=== PATIENT | male | born 1955 | race Caucasian/White ===

== ENCOUNTER 2021-04-17 05:08 | Emergency (ER) | payer MEDICARE ==
[~2021-04-17] VITALS: Ht 177.8 cm; Wt 91.3 kg
[2021-04-17] MEDS ORDERED: IV NORMAL SALINE 1,000ML 1,000 ML IV ONE (05:30)
[2021-04-17] MEDS ORDERED: FUROSEMIDE 40 MG/4 ML VIAL IVP ONE (05:30)
[2021-04-17] MEDS ORDERED: PIPERACILLIN/TAZOBACTAM 3.375 GM in IV NORMAL SALINE 50ML 50 ML IV ONE (05:30)
--- NOTE | 2021-04-17 05:41 | RAD ---
XR CHEST 1V History: Reason: SOB / Spl. Instructions: / History: Comparison: March 18, 2021 Findings: Low lung volumes. Patchy mid and bibasilar opacities. No pleural effusion. No pneumothorax. Normal he art size. Impression: 1. Low lung volumes with patchy mid and bibasilar opacities, may represent atelectasis or developing infiltrates. If persistent clinical concern, recommend follow-up. Electronically signed by: Rahul Marie DO (04/17/2021 5:39 AM) [facility]
[2021-04-17 05:44] LABS: BGAS PH 7.49 (7.35-7.46)
[2021-04-17 05:44] LABS: BASO # 0.1 x10^3/uL (0.0-0.2); BASO % 1 % (0-3); EOS % 0 % (0-3); HEMATOCRIT 27.2 % (39.0-53.0); HEMOGLOBIN 8.9 g/dL (13.0-17.5); LYMPH # 1.1 x10^3/uL (1.0-4.8); LYMPH % 9 % (24-48); MEAN CORPUSCULAR HEMOGLOBIN 33 pg (25-35); MEAN CORPUSCULAR HGB CONC 33 g/dL (31-37); MEAN CORPUSCULAR VOLUME 102 fL (79-100); MONO # 0.7 x10^3/uL (0.0-1.1); MONO % 6 % (0-9); NEUT % 84 % (31-73); PLATELET COUNT 364 x10^3/uL (140-400); RED BLOOD COUNT 2.68 x10^6/uL (4.30-5.70); RED CELL DISTRIBUTION WIDTH 23.3 % (11.5-14.5); WHITE BLOOD COUNT 11.9 x10^3/uL (4.0-11.0)
[2021-04-17 05:48] LABS: CALCIUM 7.9 mg/dL (8.5-10.1); CREATININE 0.8 mg/dL (0.7-1.3); GFR 96.4
[2021-04-17] MEDS ORDERED: IV NORMAL SALINE 50ML 50 ML ONE (05:51)
[2021-04-17] MEDS ORDERED: PIPERACILLIN/TAZOBACTAM 3.375 GM VIAL IV ONE (05:51)
[2021-04-17 05:54] LABS: ALBUMIN 1.5 g/dL (3.4-5.0); ALBUMIN/GLOBULIN RATIO 0.3 (1.0-1.7); TOTAL BILIRUBIN 1.9 mg/dL (0.2-1.0); TOTAL PROTEIN 6.5 g/dL (6.4-8.2)
[2021-04-17 05:55] LABS: ANISOCYTOSIS MOD; MICROCYTOSIS SLIGHT; PLT ESTIMATE ADEQUATE (ADEQUATE)
--- NOTE | 2021-04-17 05:55 | PHYS DOC ---
General Adult EDM: Chief Complaint: SHORTNESS OF BREATH HPI: HPI: 66-year-old male presents via EMS from rehab facility for respiratory distress and fever. The patient arrived on BiPAP. He is not really able to answer questions at this time. He is awake and alert. History from EMS states that he just got to the rehab facility yesterday at 6 PM, with some 12 hours ago. Patient was found to have a temperature of 101.7 and was having respiratory distress. He sounded wet. His oxygen was 84 on room air. They placed him on BiPAP. It is not clear what surgery the patient had. He has large abdominal dressing with TEVIN drains. He also has feeding tubes. He did get his Covid 19 first vaccine yesterday. (DREW PACHECO DO) Review of Systems: Review of Systems: Constitutional: Denies fever or chills Eyes: Denies change in visual acuity HENT: Denies nasal congestion or sore throat Respiratory: shortness of breath Cardiovascular: Denies chest pain or edema GI: Denies abdominal pain, nausea, vomiting, bloody stools or diarrhea : Denies dysuria Musculoskeletal: Denies back pain or joint pain Integument: Denies rash Neurologic: Denies headache, focal weakness or sensory changes Endocrine: Denies polyuria or polydipsia Lymphatic: Denies swollen glands Psychiatric: Denies depression or anxiety (DREW PACHECO DO) Current Medications: Current Meds: Current Medications Medications (Trade) Dose Ordered Sig/Sandra Start Time Stop Time Status Last Admin Dose Admin Furosemide (Lasix) 40 mg 1X ONCE 04/17/21 05:30 04/17/21 05:35 DC 04/17/21 05:34 40 MG Piperacillin Sod/ Tazobactam Sod 3.375 gm/Sodium Chloride 50 ml @ 100 mls/hr 1X ONCE 04/17/21 05:30 04/17/21 05:59 Sodium Chloride 1,000 ml @ 1,000 mls/hr 1X ONCE 04/17/21 05:30 04/17/21 06:29 04/17/21 05:30 1,000 MLS/HR (DREW PACHECO DO) Allergies: Allergies: Allergies Coded Allergies Type Severity Reaction Last Updated Verified No Known Drug Allergies 04/17/21 No (DREW PACHECO DO) Physical Exam: PE: Constitutional: Well developed, well nourished, moderate acute distress. [] HENT: Normocephalic, atraumatic, bilateral external ears normal, oropharynx very dry, no oral exudates, nose normal. [] Eyes: PERRLA, EOMI, conjunctiva normal, no discharge. [] Neck: Normal range of motion, no tenderness, supple, no stridor. [] Cardiovascular: Heart rate 132, regular rhythm, no murmur [] Lungs & Thorax: Bilateral breath sounds with inspiratory and expiratory crackles throughout [] Abdomen: TEVIN drains and feeding tubes in place [] Skin: Warm, dry, no erythema, no rash. [] Back: No tenderness, no CVA tenderness. [] Extremities: No tenderness, no cyanosis, no clubbing, ROM intact, no edema. [] Neurologic: Alert, normal motor function, normal sensory function, no focal deficits noted. [] Psychologic: Affect normal, judgement normal, mood normal. [] (DREW PACHECO DO) Current Patient Data: Labs: Laboratory Tests Test 04/17/21 05:17 Glucose (Fingerstick) 192 mg/dL (70-99) H (DREW PACHECO DO) Labs: Laboratory Tests Test 04/17/21 05:17 04/17/21 05:20 04/17/21 05:23 Glucose (Fingerstick) 192 mg/dL Blood Gas pH 7.49 Blood Gas PCO2 41 mmHg Blood Gas PO2 89 mmHg Blood Gas HCO3 31 mmol/L Arterial Bld O2 Saturation (Calc) 97 % FiO2 50 % White Blood Count 11.9 x10^3/uL Red Blood Count 2.68 x10^6/uL Hemoglobin 8.9 g/dL Hematocrit 27.2 % Mean Corpuscular Volume 102 fL Mean Corpuscular Hemoglobin 33 pg Mean Corpuscular Hemoglobin Concent 33 g/dL Red Cell Distribution Width 23.3 % Platelet Count 364 x10^3/uL Neutrophils (%) (Auto) 84 % Lymphocytes (%) (Auto) 9 % Monocytes (%) (Auto) 6 % Eosinophils (%) (Auto) 0 % Basophils (%) (Auto) 1 % Neutrophils # (Auto) 10.0 x10^3uL Lymphocytes # (Auto) 1.1 x10^3/uL Monocytes # (Auto) 0.7 x10^3/uL Eosinophils # (Auto) 0.0 x10^3/uL Basophils # (Auto) 0.1 x10^3/uL Platelet Estimate Adequate Anisocytosis Mod Microcytosis Slight Macrocytosis Slight Sodium Level 144 mmol/L Potassium Level 4.0 mmol/L Chloride Level 107 mmol/L Carbon Dioxide Level 30 mmol/L Anion Gap 7 Blood Urea Nitrogen 17 mg/dL Creatinine 0.8 mg/dL Estimated GFR (Cockcroft-Gault) 96.4 BUN/Creatinine Ratio 21 Glucose Level 203 mg/dL Lactic Acid Level 1.5 mmol/L Calcium Level 7.9 mg/dL Total Bilirubin 1.9 mg/dL Aspartate Amino Transf (AST/SGOT) 40 U/L Alanine Aminotransferase (ALT/SGPT) 57 U/L Alkaline Phosphatase 364 U/L Troponin I Quantitative < 0.017 ng/mL Total Protein 6.5 g/dL Albumin 1.5 g/dL Albumin/Globulin Ratio 0.3 Current Medications Medications (Trade) Dose Ordered Sig/Sandra Route PRN Reason Start Time Stop Time Status Last Admin Dose Admin Furosemide (Lasix) 40 mg 1X ONCE IVP 04/17/21 05:30 04/17/21 05:35 DC 04/17/21 05:34 Sodium Chloride 1,000 ml @ 1,000 mls/hr 1X ONCE IV 04/17/21 05:30 04/17/21 06:29 04/17/21 05:30 Piperacillin Sod/ Tazobactam Sod 3.375 gm/Sodium Chloride 50 ml @ 100 mls/hr 1X ONCE IV 04/17/21 05:30 04/17/21 05:59 DC 04/17/21 06:15 Sodium Chloride 1,000 ml @ 1,730 mls/hr Q35M IV 04/17/21 06:00 04/17/21 07:00 Sodium Chloride 50 ml @ As Directed STK-MED ONCE .ROUTE 04/17/21 05:51 04/17/21 05:51 DC Piperacillin Sod/ Tazobactam Sod (Zosyn) 3.375 gm STK-MED ONCE IV 04/17/21 05:51 04/17/21 05:52 DC Vital Signs: Vital Signs Date Time Temp Pulse Resp B/P (MAP) Pulse Ox O2 Delivery O2 Flow Rate FiO2 04/17/21 05:10 94 BiPAP/CPAP Vital Signs Date Time Temp Pulse Resp B/P (MAP) Pulse Ox O2 Delivery O2 Flow Rate FiO2 04/17/21 05:20 BiPAP/CPAP 04/17/21 05:10 94 (JENNY NARAYANAN DO) EKG: EKG: [] (DREW PACHECO DO) EKG: EKG ordered and interpreted by myself at 0603 hrs. as sinus tachycardia with a rate of 127 bpm, unremarkable intervals, no axis deviation, no acute ischemic findings, no STEMI (JENNY NARAYANAN DO) Radiology/Procedures: Radiology/Procedures: [] (DREW PACHECO DO) Radiology/Procedures: XR CHEST 1V History: Reason: SOB / Spl. Instructions: / History: Comparison: March 18, 2021 Findings: Low lung volumes. Patchy mid and bibasilar opacities. No pleural effusion. No pneumothorax. Normal heart size. Impression: 1. Low lung volumes with patchy mid and bibasilar opacities, may represent atelectasis or developing infiltrates. If persistent clinical concern, recommend follow-up. Electronically signed by: Rahul Marie DO (04/17/2021 5:39 AM) [facility] (JENNY NARAYANAN DO) Heart Score: C/O Chest Pain: N/A Risk Factors: Risk Factors: DM, Current or recent (<one month) smoker, HTN, HLP, family history of CAD, obesity. Risk Scores: Score 0 - 3: 2.5% MACE over next 6 weeks - Discharge Home Score 4 - 6: 20.3% MACE over next 6 weeks - Admit for Clinical Observation Score 7 - 10: 72.7% MACE over next 6 weeks - Early Invasive Strategies (DREW PACHECO DO) C/O Chest Pain: No HEART Score for Chest Pain: HEART Score for Chest Pain Response (Comments) Value History Moderately Suspicious 1 ECG Normal 0 Age > 65 2 Risk Factors >3 Risk Factors or Hx CAD 2 Troponin < Normal Limit 0 Total 5 (JENNY NARAYANAN DO) Course & Med Decision Making: Course & Med Decision Making Pertinent Labs and Imaging studies reviewed. (See chart for details) On arrival the patient sounded very wet to auscultation of his lungs. I have ordered 40 mg of Lasix IV. The patient was placed on our BiPAP machine. His initial ABG when adjusted for temperature is 7.485 with a CO2 of 41.2 and an O2 of 89. The patient seems more comfortable now on BiPAP. His heart rate is quite elevated. I have ordered initial liter of normal saline. We will give him 30mL/kg of fluid. I will also cover the patient with Zosyn after his blood cultures are drawn. Work-up is pending. I am signing the patient out to Dr. Narayanan at 0600. [] (DREW PACHECO DO) Course & Med Decision Making I personally saw patient and repeated certain aspects of history and physical examination after comprehensive signout and review of ER work-up so far with off going physician Patient tolerating BiPAP. Respiratory status improved since ER arrival per ER staff. Patient still only able to speak in few word sentences but confirms his recent surgery was at [facility], was discharged and did not last more than [address] [facility] and rehab facility I contacted [facility] and reviewed recent medical history of patient. I discussed my findings and concern for need of transfer and higher acuity of care. Patient was ultimately accepted for transfer under the care of Dr. Mitchell who is filled milliliter with patient's case I reviewed that patient initially received 40 mg IV Lasix, subsequently given 600mls IV normal saline, IV Zosyn, and rectal Tylenol. No other recommendations given. Pending blood and sputum cultures at this time I updated patient on proposed plan of care that included hospital transfer, he was amenable. All questions and concerns addressed prior to transfer via EMS to [facility] Critical Care Time This patient required critical care. Due to the fact that the patient required a significant amount of one on one physician - patient contact time, ordering and review of studies, arranging urgent treatment with development of a management plan, evaluation of patients response to treatment with frequent reassessments, and discussions with other providers this patient required 60 minutes of critical care time. Critical care time was indicated due to the inherent instability and/or potential for instability in this patient. The critical care time that is allocated to this patient is above and beyond any time spent on any other billable procedures performed on this patient. (JENNY NARAYANAN DO) Iraida Disclaimer: Iraida Disclaimer: This electronic medical record was generated, in whole or in part, using a voice recognition dictation system. (DREW PACHECO DO) Date and Time of Assessment Date: Apr 17, 2021 Time: 05:51 (DREW PACHECO DO) Respirations Respiratory Effort: Shortness of air, Labored Respiratory Pattern: Hyperpnea (DREW PACHECO DO) Cardiovascular Pulse Rhythm: Regular HEART: No murmurs noted (DREW PACHECO DO) Lung Sounds Breath Sounds: Crackles (DREW PACHECO DO) Capillary Refill Capillary Refill: Rt Hand > 3 seconds (DREW PACHECO DO) Peripheral Pulse Pulse Location: Monitor Pulse Strength: Normal (2+) Pulse Assessment Method: Monitor (DREW PACHECO DO) Integumentary Skin: Warm Skin Moisture: Dry Skin Turgor: Decreased Skin Color: no erythema Fingernail Color: WNL (DREW PACHECO DO) Departure Departure: Impression: Primary Impression: Acute and chronic respiratory failure with hypoxia Additional Impressions: Sepsis due to pneumonia History of recent surgery Disposition: 02 [facility]ORT TERM [facility]OSPITAL ([facility]) Admitting Physician: Other (dr mitchell) (JENNY NARAYANAN DO) Condition: STABLE DREW PACHECO DO Apr 17, 2021 05:55 JENNY NARAYANAN DO Apr 17, 2021 06:21
[2021-04-17] MEDS ORDERED: IV NORMAL SALINE 1,000ML 1,000 ML IV SCH (06:00)
--- NOTE | 2021-04-17 06:16 | EKG ---
[address] [address] Test Date: 2021-04-17 Test Time: 05:57:28 Pat Name: TUNDE LAYTON Department: Room: Gender: M Scrap Piler: : [id number] Requested By: DREW PACHECO Order Number: [id number] Reading MD: Measurements Intervals [place] Rate: 127 P: 1 [place]: 134 QRS: 8 QRSD: 70 T: 28 QT: 304 QTc: 447 Interpretive Statements SINUS TACHYCARDIA LOW LIMB LEAD VOLTAGE NO SPECIFIC ECG ABNORMALITIES RI6.02 No previous ECG available for comparison
[2021-04-17] MEDS ORDERED: ACETAMINOPHEN 650 MG SUPP.RECT. PR ONE (06:30)
[2021-04-17 06:41] LABS: BACTERIA,URINE 0 /HPF (0-FEW); BILIRUBIN,URINE NEG (NEG); CLARITY,URINE HAZY; COLOR,URINE YELLOW; GLUCOSE,URINE NEG (NEG); GRANULAR CASTS,URINE OCC /HPF; NITRITE,URINE NEG (NEG); SQUAMOUS EPITHELIAL CELL,UR FEW /LPF; UROBILINOGEN,URINE 0.2 mg/dL (0.2 mg/dL); WBC,URINE OCC /HPF (0-4)
[2021-04-17 07:30] VITALS: BP 148/100
== END 2021-04-17 07:35 | disposition short-term general hospital (02) ==
LOC: ER 05:08
DX: A41.9 Sepsis, unspecified organism (principal); J96.21 Acute and chronic respiratory failure with hypoxia
CPT/HCPCS: 36415; 36600; 71045; 80053; 81001; 82803; 82947; 83605; 84484; 85025; 87040; 87070; 87205; 93005; 94660; 96365; 96375; 99291; J1940; J2543; J7030; 87077; 87186